=== PATIENT | male | born 1970 | race Caucasian/White ===

== ENCOUNTER 2016-10-31 18:43 | Emergency (ER) | payer MEDICARE, OTHER ==
[~2016-10-31] VITALS: Ht 188 cm; Wt 90.0 kg
[2016-10-31] MEDS ORDERED: ONDANSETRON HCL 4 MG/2 ML VIAL ONE (18:52)
[2016-10-31 18:55] VITALS: BP 155/83; PULSE 59; RESP 18; TEMP 98.1; O2SAT 100
[2016-10-31] MEDS ORDERED: FENT12DI T-DERMAL (18:58)
[2016-10-31] MEDS ORDERED: PERC5TAB12 PO (18:59)
[2016-10-31] MEDS ORDERED: SODIUM CHLOR 0.9% 1000 ML INJ 1,000 ML IV SCH (19:21)
--- NOTE | 2016-10-31 19:26 | PD ---
HPI Chief Complaint: GI Complaint Time Seen by Provider: 19:23 Travel History International Travel<30 days: No Contact w/Intl Traveler<30days: No Traveled to known affect area: No History of Present Illness HPI 46-year-old male presents to the emergency department for evaluation of nausea and vomiting. Patient states that he has had a decreased appetite today. He states that he has had chills. He states that he took 3 Percocet 5/325 mg approximately 3 hours ago for chronic back pain. He states he took this on an empty stomach. He states he started vomiting a +30 minutes prior to arrival. He states he has abdominal pain with vomiting. He denies any chest pain or shortness of breath. Reports chills, but no documented fevers. No diarrhea or constipation. No blood in his stool. He does report history of chronic back pain and takes Percocet. He denies any other medical problems. PFSH Past Medical History Neurologic: Yes (TBI in 1994, parapalegic) ?: Not Social History Alcohol Use: Yes (rarely) Tobacco Use: No Substance Use: No Allergies-Medications (Allergen,Severity, Reaction): Coded Allergies: Penicillin (Verified Allergy, Unknown, 10/31/16) Reported Meds & Prescriptions Reported Meds & Active Scripts Active Reported Percocet (Oxycodone-Acetaminophen) 5-325 mg Tab 2 Tab PO Q8HR PRN Fentanyl Patch 72 HR (Fentanyl) 12 Mcg/Hr Patch 1 Patch T-DERMAL Q72H Remove old patch when new one placed. Review of Systems Except as stated in HPI: all other systems reviewed are Neg Physical Exam Narrative GENERAL: Well-nourished, well-developed male patient, Ambulatory. Afebrile.. SKIN: Focused skin assessment warm/dry HEAD: Normocephalic. Atraumatic. EYES: No scleral icterus. No injection or drainage. NECK: Supple, trachea midline. No JVD or lymphadenopathy. CARDIOVASCULAR: Regular rate and rhythm without murmurs, gallops, or rubs. RESPIRATORY: Breath sounds equal bilaterally. No accessory muscle use. Lungs sounds are clear to auscultation. GASTROINTESTINAL: Abdomen soft and nondistended. Patient has epigastric tenderness to palpation. MUSCULOSKELETAL: No cyanosis, or edema. BACK: Nontender without obvious deformity. No CVA tenderness. Data Data Last Documented VS Vital Signs Date Time Temp Pulse Resp B/P Pulse Ox O2 Delivery O2 Flow Rate FiO2 10/31/16 20:32 18 98 10/31/16 18:55 98.1 59 155/83 Room Air Orders Ondansetron Inj (Zofran Inj) (10/31/16 18:52) Complete Blood Count With Diff (10/31/16 19:21) Comprehensive Metabolic Panel (10/31/16 19:21) Lipase (10/31/16 19:21) Iv Access Insert/Monitor (10/31/16 19:21) Ecg Monitoring (10/31/16 19:21) Oximetry (10/31/16 19:21) Sodium Chlor 0.9% 1000 Ml Inj (Ns 1000 M (10/31/16 19:21) Sodium Chloride 0.9% Flush (Ns Flush) (10/31/16 19:30) Electrocardiogram (10/31/16 19:21) Influenzae A/B Antigen (10/31/16 19:21) Labs Laboratory Tests Test 10/31/16 19:25 White Blood Count 7.1 TH/MM3 Red Blood Count 4.77 MIL/MM3 Hemoglobin 14.1 GM/DL Hematocrit 41.0 % Mean Corpuscular Volume 85.9 FL Mean Corpuscular Hemoglobin 29.5 PG Mean Corpuscular Hemoglobin 34.3 % Concent Red Cell Distribution Width 13.7 % Platelet Count 196 TH/MM3 Mean Platelet Volume 8.7 FL Neutrophils (%) (Auto) 72.4 % Lymphocytes (%) (Auto) 18.3 % Monocytes (%) (Auto) 6.4 % Eosinophils (%) (Auto) 2.2 % Basophils (%) (Auto) 0.7 % Neutrophils # (Auto) 5.1 TH/MM3 Lymphocytes # (Auto) 1.3 TH/MM3 Monocytes # (Auto) 0.5 TH/MM3 Eosinophils # (Auto) 0.2 TH/MM3 Basophils # (Auto) 0.0 TH/MM3 CBC Comment DIFF FINAL Differential Comment Sodium Level 142 MEQ/L Potassium Level 4.6 MEQ/L Chloride Level 105 MEQ/L Carbon Dioxide Level 28.6 MEQ/L Anion Gap 8 MEQ/L Blood Urea Nitrogen 20 MG/DL Creatinine 1.44 MG/DL Estimat Glomerular Filtration 53 ML/MIN Rate Random Glucose 99 MG/DL Calcium Level 9.3 MG/DL Total Bilirubin 0.3 MG/DL Aspartate Amino Transf 34 U/L (AST/SGOT) Alanine Aminotransferase 51 U/L (ALT/SGPT) Alkaline Phosphatase 73 U/L Total Protein 7.8 GM/DL Albumin 3.9 GM/DL Lipase 107 U/L [facility] Medical Decision Making Medical Screen Exam Complete: Yes Emergency Medical Condition: Yes Medical Record Reviewed: Yes Differential Diagnosis Viral syndrome versus influenza versus adverse action to medication versus pancreatitis Narrative Course 46-year-old male presents to the emergency department for evaluation nausea and vomiting that started just prior to arrival. He has reports decreased appetite. He did take Percocet today on an empty stomach. Patient does have epigastric tenderness to palpation. EKG, CBC, CMP, lipase are ordered and pending. Patient is given normal saline 1 L IV bolus. Influenza is ordered and pending. EKG shows sinus bradycardia, heart rate 48, no acute ST changes. CBC shows no acute abnormality. CMP shows no acute abnormality. Lipase is 107. Influenza is negative. Patient states he feels better after Zofran and IV fluids. The patient will be discharged prescription for Zofran ODT. He is encouraged to follow-up with his primary care physician. Patient verbalizes agreement and understanding. The patient was discharged in stable condition with instructions, including return instructions and follow up instructions. Diagnosis Primary Impression: Vomiting Qualified Code: R11.2 - Non-intractable vomiting with nausea, unspecified vomiting type Referrals: Primary Care Physician call for appointment Patient Instructions: Acute Nausea and Vomiting (ED), General Instructions Additional Instructions: Take Zofran as directed as needed for nausea/vomiting. Follow-up with your primary care physician. Return to the emergency department for any acute worsening of symptoms. Med/Other Pt SpecificInfo: Prescription(s) given Scripts Ondansetron Odt 4 Mg Tab4 Mg SL Q6HR PRN (Nausea/Vomiting) #16 TAB Ref 0 Prov:Nadira Chavez 10/31/16 Disposition: 01 DISCHARGE HOME Condition: Stable Nadira Chavez Oct 31, 2016 19:25
[2016-10-31] MEDS ORDERED: SODIUM CHLORIDE 0.9% FLUSH 10 ML FLUSH IV FLUSH PRN (19:30)
[2016-10-31 20:10] LABS: AUTOMATED NEUTROPHIL # 5.1 TH/MM3 (1.8-7.7); BASOPHIL % 0.7 % (0.0-2.0); EOSINOPHIL # 0.2 TH/MM3 (0-0.4); EOSINOPHIL % 2.2 % (0.0-4.0); HEMO FLAGS DIFF FINAL; LYMPH % 18.3 % (9.0-44.0); LYMPHOCYTE # 1.3 TH/MM3 (1.0-4.8); MEAN CELL VOLUME 85.9 FL (80.0-100.0); MEAN CORPUSCULAR HEMOGLOBIN 29.5 PG (27.0-34.0); MEAN CORPUSCULAR HGB CONC 34.3 % (32.0-36.0); MONO % 6.4 % (0.0-8.0); NEUT % 72.4 % (16.0-70.0); PLATELET COUNT 196 TH/MM3 (150-450); RED BLOOD COUNT 4.77 MIL/MM3 (4.50-5.90); RED CELL DISTRIBUTION WIDTH 13.7 % (11.6-17.2); WHITE BLOOD COUNT 7.1 TH/MM3 (4.0-11.0)
[2016-10-31 20:32] VITALS: RESP 18; O2SAT 98
[2016-10-31 20:51] LABS: ALKALINE PHOSPHATASE 73 U/L (45-117); ALT (GPT) 51 U/L (12-78); ANION GAP 8 MEQ/L (5-15); AST (GOT) 34 U/L (15-37); BICARBONATE 28.6 MEQ/L (21.0-32.0); BLOOD UREA NITROGEN 20 MG/DL (7-18); CHLORIDE 105 MEQ/L (98-107); GLOMERULAR FILTRATION RATE 53 ML/MIN (>89); POTASSIUM 4.6 MEQ/L (3.5-5.1); SODIUM (NA) 142 MEQ/L (136-145); TOTAL BILIRUBIN ADULT 0.3 MG/DL (0.2-1.0)
[2016-10-31] MEDS ORDERED: ONDA4TAB7 SL (21:02)
--- NOTE | 2016-11-01 20:16 | EKG ---
Date Performed: 10/31/2016 Time Performed: 20:16:19 PTAGE: 46 years EKG: SINUS BRADYCARDIA WITH SINUS ARRHYTHMIA BORDERLINE ECG NO PREVIOUS TRACING DOCTOR: Kim Gresham Interpretating Date/Time 11/01/2016 20:15:26
--- NOTE | 2016-11-13 13:33 | EKG ---
Date Performed: 10/31/2016 Time Performed: 20:16:19 PTAGE: 46 years EKG: SINUS BRADYCARDIA WITH SINUS ARRHYTHMIA BORDERLINE ECG NO PREVIOUS TRACING DOCTOR: Kim Gresham Interpretating Date/Time 11/13/2016 13:33:32
== END 2016-10-31 21:47 | disposition home or self-care (01) ==
LOC: NEPE 18:43
DX: R11.2 Nausea with vomiting, unspecified (principal); R10.9 Unspecified abdominal pain; R00.1 Bradycardia, unspecified; R94.31 Abnormal electrocardiogram [ECG] [EKG]; Z87.39 Personal history of other diseases of the musculoskeletal system and connective tissue; Z86.69 Personal history of other diseases of the nervous system and sense organs
CPT/HCPCS: 80053; 83690; 85025; 87804; 93005; 96374; 99284; J2405; J7030